=== PATIENT | male | born 1950 | race Caucasian/White ===

== ENCOUNTER 2023-08-14 08:21 | Day surgery (SDC) | payer MEDICARE, MEDICAID, SELFPAY ==
[2023-08-11 13:51] VITALS: BMI 25.6
--- NOTE | 2023-08-13 09:55 | HO.ANESPROP2 ---
Documented by User: Shante Hunter NP 08/13/23 09:56 HPI - Anesthesia Eval Consult details Narrative: 72yo M for Colonoscopy [facility] Past Medical History Medical History Prostate cancer Asbestosis Barretts esophagus Celiac disease GERD (gastroesophageal reflux disease) Hyperlipidemia Crohn's disease Squamous cell cancer of tongue HTN (hypertension) Surgical History Surgical History History of orthopedic surgery Hx of resection of large bowel History of esophagogastroduodenoscopy (EGD) H/O colonoscopy Social History Social History Patient Tobacco Use Status: Former Tobacco user Are you DNR?: No Advance Directives: No Advance Directives Information Provided: Yes Nutrition Risks: No Nutritional Risk Meds Allergies Allergy/AdvReac Type Severity Reaction Status Date / Time No Known Allergies Allergy Verified 08/14/23 08:30 Home Medications Medication Instructions Recorded Confirmed Last Taken Type cevimeline 30 mg capsule 1 cap PO TID 08/11/23 08/11/23 Unknown History gabapentin 300 mg capsule 900 mg PO TID 08/11/23 08/11/23 08/14/23 History omeprazole 20 mg capsule,delayed 20 mg PO DAILY 08/11/23 08/11/23 Unknown History release pilocarpine HCl 5 mg tablet PO 08/11/23 08/11/23 Unknown History pravastatin 10 mg tablet PO 08/11/23 Unknown History tamsulosin 0.4 mg capsule 0.4 mg PO DAILY 08/11/23 08/11/23 Unknown History valacyclovir 500 mg tablet 1,000 mg PO BID 08/11/23 08/11/23 Unknown History Exam Exam Date and Time: August 13, 2023 0955 Height,Weight and Vital Signs: Height 6 ft 1 in Weight 87.997 kg Assessment and Plan Assessment Anesthesia Assessment: Chart Reviewed Documented by User: Yenny Hendricks MD 08/14/23 08:46 [facility] Past Medical History Medical History Prostate cancer Asbestosis Barretts esophagus Celiac disease GERD (gastroesophageal reflux disease) Hyperlipidemia Crohn's disease Squamous cell cancer of tongue HTN (hypertension) Family History Family history of problems with anesthesia: No Surgical History Surgical History History of orthopedic surgery Hx of resection of large bowel History of esophagogastroduodenoscopy (EGD) H/O colonoscopy History of Problems with Anesthesia: No Social History Social History Patient Tobacco Use Status: Former Tobacco user Are you DNR?: No Advance Directives: No Advance Directives Information Provided: Yes Nutrition Risks: No Nutritional Risk Meds Allergies Allergy/AdvReac Type Severity Reaction Status Date / Time No Known Allergies Allergy Verified 08/14/23 08:30 Home Medications Medication Instructions Recorded Confirmed Last Taken Type cevimeline 30 mg capsule 1 cap PO TID 08/11/23 08/11/23 Unknown History gabapentin 300 mg capsule 900 mg PO TID 08/11/23 08/11/23 08/14/23 History omeprazole 20 mg capsule,delayed 20 mg PO DAILY 08/11/23 08/11/23 Unknown History release pilocarpine HCl 5 mg tablet PO 08/11/23 08/11/23 Unknown History pravastatin 10 mg tablet PO 08/11/23 Unknown History tamsulosin 0.4 mg capsule 0.4 mg PO DAILY 08/11/23 08/11/23 Unknown History valacyclovir 500 mg tablet 1,000 mg PO BID 08/11/23 08/11/23 Unknown History Exam Airway Mallampati Class: IV TM Dist: >3cm Neck ROM: Full Assessment and Plan Assessment Anesthesia Assessment: Anesthesia Plan Discussed Final Anesthetic Review Family History of Problems with Anesthesia: No History of Problems with Anesthesia: No NPO: Yes ASA Class: III Final Preanesthetic Review: No Changes in Pt Med Stat, Meds/Allgs Chart Reviewed, Consent Obtained/Reviewed and Anes Risks/Benef Reviewed Patient Risk: Intermediate Procedure Risk: Low Anesthetic Plan Anesthetic Plan: MAC: Disposition: Standard PACU
[2023-08-14] MEDS: Lactated Ringers 1,000 ML 100 ML IVCONT (08:37)
[2023-08-14 08:54] VITALS: BP 125/86; PULSE 76; RESP 18; TEMP 36.6; O2SAT 100
--- NOTE | 2023-08-14 09:38 | P.HPSUR_ITS ---
Pre-Procedural Eval Section A Date of Service: 08/14/23 Section B Chief Complaint: Crohn's disease, unspecified, without complication Details of Present Illness: see h&p no changes Relevant Family History (Specify if Yes): No Relevant Social History: None Present Medications: see Short Stay Collaborative assessment Medical History: No relevant PMH History of Previous Operations: No relevant previous surgery Allergies: Allergies Allergy/AdvReac Type Severity Reaction Status Date / Time No Known Allergies Allergy Verified 08/14/23 08:30 Review of Systems Sugical H&P ROS: Negative: Constitution, Cardiovascular, Respiratory, Neurol ogical, Psychiatric, Hem-Onc, Allergic/Immunologic, Gastrointestinal, Genitourinary, Musculoskeletal, Integumentary, Endocrine and Eyes/Ears/Nose/Throat Exam Surgical H&P Exam: Normal: HEENT, Normal: Heart, Normal: Lungs, Normal: Extremities, Normal: Abdomen, Normal: Skin and Normal: Neurological Plan Diagnosis/Plan: Unchanged I have reviewed the history and physical and performed a pertinent physical examination on my patient. No changes have occurred unless specified. Time Spent With Patient Time: Total time managing care of this patient today ____ minutes.
[2023-08-14 10:12] VITALS: BP 90/51; PULSE 66; RESP 12; TEMP 36.1; O2SAT 97
[2023-08-14 10:27] VITALS: BP 109/72; PULSE 73; RESP 20; TEMP 36.2; O2SAT 99
--- NOTE | 2023-08-14 11:17 | OP_ITS ---
DATE OF SERVICE: 08/14/2023 SURGEON: Terrence Parra MD INDICATIONS: Crohn disease, involving the small intestine. PREOPERATIVE DIAGNOSIS: POSTOPERATIVE DIAGNOSIS: PROCEDURE PERFORMED: Colonoscopy to the terminal ileum with biopsy. ESTIMATED BLOOD LOSS: COMPLICATIONS: ANESTHESIA: Monitored anesthesia care. ASSISTANTS: SPECIMENS: DESCRIPTION OF PROCEDURE: A history and physical was performed. The risks and benefits of the procedure were explained to the patient, and informed consent was obtained. The patient was placed in the left lateral decubitus position. A digital rectal exam was performed and was found to be normal. The Olympus pediatric video colonoscope was introduced into the rectum and advanced to the neoterminal ileum. Examination was performed, and the scope was removed. He tolerated the procedure well and was taken to recovery in stable condition. FINDINGS: There was a patent ileocolonic anastomosis in the right colon. There was ileitis involving the neoterminal ileum. This was biopsied. There was no evidence of mass lesion. The visualized colonic mucosa was within normal limits without evidence of masses or ulcers. Random biopsies were obtained from throughout the colon. There was no evidence of active Crohn disease involving the colon. There was mild diverticulosis. Retroflexed examination showed some small internal hemorrhoids. IMPRESSION: Crohn disease. RECOMMENDATION: Follow up biopsy results. MD DELBERT Quigley/SAMMY / [id number]
== END 2023-08-14 10:43 | disposition home or self-care (01) ==
PROVIDERS: PCP Internal Medicine; Visit Provider Internal Medicine Gastroenterology
PROC: 0DJD8ZZ Inspection of Lower Intestinal Tract, Via Natural or Artificial Opening Endoscopic (ICD-10-PCS; CPT 45378; principal; 2023-08-14 09:40)
DX: K50.80 Crohn's disease of both small and large intestine without complications (principal); K52.89 Other specified noninfective gastroenteritis and colitis; K90.0 Celiac disease; K86.81 Exocrine pancreatic insufficiency; Z98.0 Intestinal bypass and anastomosis status; K57.30 Diverticulosis of large intestine without perforation or abscess without bleeding; K64.8 Other hemorrhoids; K22.70 Barrett's esophagus without dysplasia; K21.9 Gastro-esophageal reflux disease without esophagitis; C61 Malignant neoplasm of prostate; C02.9 Malignant neoplasm of tongue, unspecified; J61 Pneumoconiosis due to asbestos and other mineral fibers; I10 Essential (primary) hypertension; E78.5 Hyperlipidemia, unspecified; Z90.49 Acquired absence of other specified parts of digestive tract; Z92.21 Personal history of antineoplastic chemotherapy; Z92.3 Personal history of irradiation; Z87.891 Personal history of nicotine dependence; Z79.899 Other long term (current) drug therapy; Z98.890 Other specified postprocedural states
CPT/HCPCS: 45380; 88305